=== PATIENT | female | born 1960 | race African-American/Black ===

== ENCOUNTER 2016-08-22 17:26 | Inpatient (IN) | payer MEDICAID ==
[~2016-08-22] VITALS: Ht 182.9 cm; Wt 113.0 kg
[~2016-08-22 17:26] MED LIST: ASP81EC PO; ATEN50TA; DIGO0.1262; DOCU100C8; FURO40TA4 PO; LEVO125T6 PO; NOR10T PO; OMEPRAZOLE DR 20 MG CAPSULE PO; POTA8TAB2 PO; RANI-229 PO; SIMV-8 PO; SOTA80TA; TRAM50TA2 PO; WARF7.5T PO
[2016-08-22 19:13] LABS: Albumin 3.1 g/dL (3.4-5.0); Anion Gap 8 (5-15); Aspartate Aminotransferase 72 U/L (15-37); Blood Urea Nitrogen 12 mg/dL (7-18); Calcium 8.3 mg/dL (8.5-10.1); Carbon Dioxide 25 mmol/L (21-32); Chloride 105 mmol/L (98-107); GFR African American 102 mL/min; GFR Non-African American 84 mL/min; Glucose 100 mg/dL (74-106); Sodium 138 mmol/L (136-145)
[2016-08-22 19:19] LABS: Alkaline Phosphatase 172 U/L (45-117); Bilirubin, Total 0.6 mg/dL (0.2-1.0); Total Protein 8.2 g/dL (6.4-8.2)
[2016-08-22] MEDS ORDERED: ONDANSETRON HCL 4 MG/2 ML VIAL IV ONE (20:00)
[2016-08-22] MEDS ORDERED: NALBUPHINE HCL 10 MG/1ml INJECTION IV ONE (20:00)
[2016-08-22 21:00] LABS: INR 1.01 (0.9-1.15); Partial Thromboplastin Time 28.5 sec (22.64-33.71); Prothrombin Time 10.9 sec (9.37-12.3)
[2016-08-22 21:01] LABS: DEFINITIVE VIEW TRANSMISSION; Hematocrit 41.7 % (36.0-46.0); Hemoglobin 13.8 g/dL (12.2-16.2); Mean Corpuscular Hemoglobin 30.1 pg (28.0-32.0); Mean Corpuscular Hgb Conc. 32.9 g/dL (32.0-36.0); Mean Corpuscular Volume 91.4 fL (80.0-100.0); Mean Platelet Volume 10.8 fL (7.4-10.4); Platelet Count (auto) 120 10^3/uL (140-450); Red Cell Distribution Width 12.3 % (11.6-16.0); SUSPECT VIEW TRANSMISSION; White Blood Cell 4.3 10^3/uL (4.4-10.8)
[2016-08-22 21:04] LABS: B-Type Natriuretic Peptide 71.07 pg/mL (0-100)
[2016-08-22 21:15] LABS: Metamyelocytes % 0; Myelocytes % 0; Promyelocytes % 0; Reactive Lymphocytes 0
[2016-08-22 21:17] LABS: Temperature: 22.9 C (20.0-25.0)
[2016-08-22 22:18] LABS: Giant Platelets Few; Large Platelets FEW; Platelet Estimate Decrea
[2016-08-22 22:32] LABS: Urine Bilirubin Negative (Negative); Urine Blood Negative /uL (Negative); Urine Color Yellow (Yellow); Urine Glucose Normal (Normal); Urine Ketone Negative (Negative); Urine Nitrite Negative (Negative); Urine RBC <1 /hpf (0 - 4); Urine Squamous Epithelial Cell FEW /hpf (<5); Urine Urobilinogen Normal (Negative); Urine pH 5.5 (5.0-8.0)
[2016-08-23] MEDS ORDERED: ACETAMINOPHEN 325 MG TAB PO PRN (05:30)
[2016-08-23] MEDS ORDERED: HYDROcodone-ACET 5/325MG TAB PO PRN (05:30)
[2016-08-23] MEDS ORDERED: DEXTROSE (50%) 50ML SYRG IV PRN (05:30)
[2016-08-23] MEDS ORDERED: DOCUSATE SOD 100 MG CAP PO PRN (05:30)
[2016-08-23] MEDS ORDERED: ONDANSETRON HCL 4 MG/2 ML VIAL IV PRN (05:30)
[2016-08-23] MEDS: InsuLIN REG 1unit/0.01ml Soln (100units/ml) SC SCH ×3 (06:00→18:00)
[2016-08-23] MEDS: ACCU-CHEK COMFORT CURVE STRIP VI SCH ×3 (06:09→18:28)
[2016-08-23] MEDS: LEVOTHYROXINE SODIUM 50 MCG TAB PO SCH (06:53)
[2016-08-23 08:00] VITALS: BP 120/72
[2016-08-23 08:18] VITALS: BP 119/76
[2016-08-23] MEDS: NITROGLYCERIN 0.4 MG SL TAB SL PRN ×2 (09:25→09:35)
[2016-08-23] MEDS: MORPHINE SULF INJ 2 MG/ML SYRINGE 1ML IV PRN ×3 (10:00→20:11)
[2016-08-23] MEDS ORDERED: ATENOLOL 50 MG TAB PO SCH (10:00)
[2016-08-23] MEDS ORDERED: RANITIDINE 300 MG PO SCH (10:00)
[2016-08-23] MEDS: ASPirin 81 mg TAB PO SCH (10:02)
[2016-08-23] MEDS: FAMOTIDINE 20 MG TAB PO SCH ×2 (10:02→21:47)
[2016-08-23] MEDS: SOTALOL HCL 80 MG TAB PO SCH ×2 (10:03→21:46)
[2016-08-23] MEDS: POTASSIUM CHLORIDE 8 MEQ TAB PO SCH (10:04)
[2016-08-23] MEDS: FUROSEMIDE 40 MG TAB PO SCH (10:05)
[2016-08-23] MEDS: DIGOXIN 0.125 MG TAB PO SCH (10:05)
[2016-08-23] MEDS: ENOXAPARIN SOD 40 MG/0.4 ML SYRINGE SC SCH (10:09)
[2016-08-23 12:42] VITALS: BP 120/72
[2016-08-23 13:14] VITALS: BP 135/80
[2016-08-23 16:45] VITALS: BP 128/79
[2016-08-23 21:38] VITALS: BP 121/70
[2016-08-23] MEDS: ATENOLOL 25 MG TAB PO SCH (21:47)
[2016-08-23] MEDS ORDERED: PATIENTS OWN MEDICATION (simvastatin 20 MG) PO SCH ×2 (22:00)
[2016-08-23] MEDS ORDERED: ATORVASTATIN 20 MG TAB PO SCH (22:00)
[2016-08-24] MEDS: ACCU-CHEK COMFORT CURVE STRIP VI SCH ×3 (00:26→12:00)
[2016-08-24 05:00] VITALS: BP 143/77
[2016-08-24] MEDS: InsuLIN REG 1unit/0.01ml Soln (100units/ml) SC SCH ×3 (06:00→12:00)
[2016-08-24] MEDS: LEVOTHYROXINE SODIUM 50 MCG TAB PO SCH (06:33)
[2016-08-24 07:11] LABS: Albumin 2.8 g/dL (3.4-5.0); Bilirubin, Total 0.7 mg/dL (0.2-1.0); Calcium 8.6 mg/dL (8.5-10.1); Potassium 4.5 mmol/L (3.5-5.1); Total Protein 7.5 g/dL (6.4-8.2)
[2016-08-24 08:00] VITALS: BP 131/70
[2016-08-24 09:08] LABS: DEFINITIVE VIEW TRANSMISSION; Hematocrit 42.4 % (36.0-46.0); Hemoglobin 14.1 g/dL (12.2-16.2); Mean Corpuscular Hemoglobin 30.2 pg (28.0-32.0); Mean Corpuscular Hgb Conc. 33.2 g/dL (32.0-36.0); Mean Corpuscular Volume 91.1 fL (80.0-100.0); Mean Platelet Volume 10.9 fL (7.4-10.4); Platelet Count (auto) 105 10^3/uL (140-450); Red Cell Distribution Width 12.1 % (11.6-16.0); White Blood Cell 3.4 10^3/uL (4.4-10.8)
[2016-08-24 09:10] LABS: Metamyelocytes % 0; Myelocytes % 0; Promyelocytes % 0; Reactive Lymphocytes 0
[2016-08-24] MEDS: POTASSIUM CHLORIDE 8 MEQ TAB PO SCH (10:02)
[2016-08-24] MEDS: ASPirin 81 mg TAB PO SCH (10:04)
[2016-08-24] MEDS: DIGOXIN 0.125 MG TAB PO SCH (10:04)
[2016-08-24] MEDS: ATENOLOL 25 MG TAB PO SCH (10:04)
[2016-08-24] MEDS: FAMOTIDINE 20 MG TAB PO SCH (10:04)
[2016-08-24] MEDS: FUROSEMIDE 40 MG TAB PO SCH (10:05)
[2016-08-24] MEDS: SOTALOL HCL 80 MG TAB PO SCH (10:05)
[2016-08-24] MEDS: ENOXAPARIN SOD 40 MG/0.4 ML SYRINGE SC SCH (10:06)
[2016-08-24 11:52] VITALS: BP 131/70
[2016-08-24 15:28] LABS: Platelet Estimate Decreased
[2016-08-24 15:29] LABS: Ovalocytes FEW; Stomatocytes Few
== END 2016-08-24 13:30 | disposition home or self-care (01) | DRG 201 ==
LOC: EDBD 17:26 → ER 17:26 → TELE 17:27 → TELE-E-ADS 08-23 07:56 → TELE-EAST 08-23 09:05
PROVIDERS: ADMIT Nurse Practitioner; ATTEND Internal Medicine
DX: I48.0 Paroxysmal atrial fibrillation (principal); E10.22 Type 1 diabetes mellitus with diabetic chronic kidney disease; E44.0 Moderate protein-calorie malnutrition; D69.6 Thrombocytopenia, unspecified; I13.0 Hypertensive heart and chronic kidney disease with heart failure and stage 1 through stage 4 chronic kidney disease, or unspecified chronic kidney disease; I50.9 Heart failure, unspecified; L03.115 Cellulitis of right lower limb; F03.90 Unspecified dementia, unspecified severity, without behavioral disturbance, psychotic disturbance, mood disturbance, and anxiety; E78.5 Hyperlipidemia, unspecified; M19.011 Primary osteoarthritis, right shoulder; N18.9 Chronic kidney disease, unspecified; F12.90 Cannabis use, unspecified, uncomplicated; B18.2 Chronic viral hepatitis C; I48.2 Chronic atrial fibrillation; R04.0 Epistaxis; F20.9 Schizophrenia, unspecified; E89.0 Postprocedural hypothyroidism; Z85.9 Personal history of malignant neoplasm, unspecified; Z80.0 Family history of malignant neoplasm of digestive organs; Z86.718 Personal history of other venous thrombosis and embolism; Z82.49 Family history of ischemic heart disease and other diseases of the circulatory system; Z82.3 Family history of stroke; Z79.4 Long term (current) use of insulin; Z68.33 Body mass index [BMI] 33.0-33.9, adult; Z83.3 Family history of diabetes mellitus; Z95.0 Presence of cardiac pacemaker; Z88.5 Allergy status to narcotic agent; Z88.0 Allergy status to penicillin; Z88.8 Allergy status to other drugs, medicaments and biological substances; Z90.710 Acquired absence of both cervix and uterus; Z98.51 Tubal ligation status; Z83.2 Family history of diseases of the blood and blood-forming organs and certain disorders involving the immune mechanism
CPT/HCPCS: 36415; 71010; 80053; 80162; 81001; 82962; 83880; 84443; 84484; 85007; 85027; 85379; 85610; 85730; 93005; 93306; 93971; 96374; 96375; J2405

== ENCOUNTER 2017-06-23 12:56 | Emergency (ER) | payer MEDICAID ==
[~2017-06-23] VITALS: Ht 177.8 cm; Wt 130.6 kg
[~2017-06-23 12:56] MED LIST changes: -LEVO125T6 PO; +LEVO125T7 PO
[2017-06-23] MEDS ORDERED: PANTOPRAZOLE 40 MG/10 ML VIAL IV STA (13:39)
[2017-06-23] MEDS ORDERED: PROCHLORPERAZINE EDISYLATE 5 MG/ML 2ML VIAL IV ONE (13:45)
[2017-06-23 14:50] LABS: Basophils # (auto) 0 uL; Basophils % (auto) 0.4 % (0.0-2.0); Eosinophils # (auto) 0 uL; Eosinophils % (auto) 0.2 % (0.0-7.0); Lymphocytes # (auto) 1.1 uL; Lymphocytes % (auto) 31.7 % (10.0-50.0); Mean Corpuscular Hemoglobin 31.5 pg (28.0-32.0); Mean Corpuscular Hgb Conc. 34.1 g/dL (32.0-36.0); Mean Corpuscular Volume 92.4 fL (80.0-100.0); Monocytes # (auto) 0.6 uL; Monocytes % (auto) 17.9 % (0.0-12.0); Neutrophils # (auto) 1.7 uL; Neutrophils % (auto) 49.8 % (37.0-80.0); Nucleated Red Blood Cells % 0.4 %; Platelet Count (auto) 88 10^3/uL (140-450); Red Blood Cells 4.44 10^6/uL (4.0-5.20); Red Cell Distribution Width 13.1 % (11.8-14.3); White Blood Cell 3.4 10^3/uL (4.4-10.8)
[2017-06-23 15:10] LABS: BUN/Creatinine Ratio 12.5; Calcium 8.5 mg/dL (8.5-10.1); Magnesium 1.7 mg/dL (1.6-2.6); Potassium 3.6 mmol/L (3.5-5.1)
[2017-06-23 16:20] VITALS: BP 148/82
== END 2017-06-23 15:15 | disposition home or self-care (01) ==
LOC: ER 12:56
DX: F12.188 Cannabis abuse with other cannabis-induced disorder (principal); R11.10 Vomiting, unspecified; I48.91 Unspecified atrial fibrillation; I13.0 Hypertensive heart and chronic kidney disease with heart failure and stage 1 through stage 4 chronic kidney disease, or unspecified chronic kidney disease; E11.22 Type 2 diabetes mellitus with diabetic chronic kidney disease; N18.9 Chronic kidney disease, unspecified; I50.9 Heart failure, unspecified; I25.2 Old myocardial infarction; F12.90 Cannabis use, unspecified, uncomplicated; Z95.0 Presence of cardiac pacemaker; Z90.49 Acquired absence of other specified parts of digestive tract; Z86.73 Personal history of transient ischemic attack (TIA), and cerebral infarction without residual deficits; Z88.0 Allergy status to penicillin; Z88.5 Allergy status to narcotic agent; Z88.8 Allergy status to other drugs, medicaments and biological substances; Z79.82 Long term (current) use of aspirin; Z79.01 Long term (current) use of anticoagulants; Z79.899 Other long term (current) drug therapy
CPT/HCPCS: 36415; 76705; 80053; 82150; 83690; 83735; 85025; 94761; 96374; 96375; 99285; C9113; J0780

== ENCOUNTER 2020-06-19 20:17 | Emergency (ER) | payer MEDICAID ==
[~2020-06-19] VITALS: Ht 180.3 cm; Wt 113.4 kg
[~2020-06-19 20:17] MED LIST changes: -ASP81EC PO; +ASPI-394 PO; +DOCU100C10; -DOCU100C8; -RANI-229 PO; +RANI300T PO; -WARF7.5T PO; +WARF7.5T2 PO
[2020-06-19 21:36] LABS: Basophils # (auto) 0 10 ^3/uL (0-0.2); Basophils % (auto) 0.8 % (0.0-2.0); Eosinophils # (auto) 0.1 10 ^3/uL (0-0.8); Eosinophils % (auto) 1.6 % (0.0-7.0); Hematocrit 40.5 % (36.0-46.0); Hemoglobin 13.9 g/dL (12.2-16.2); Lymphocytes # (auto) 2.1 10 ^3/uL (0.4-5.4); Lymphocytes % (auto) 48.5 % (10.0-50.0); Mean Corpuscular Hemoglobin 33.4 pg (28.0-32.0); Mean Corpuscular Hgb Conc. 34.2 g/dL (32.0-36.0); Mean Corpuscular Volume 97.6 fL (80.0-100.0); Monocytes # (auto) 0.4 10 ^3/uL (0-1.3); Monocytes % (auto) 10.5 % (0.0-12.0); Neutrophils # (auto) 1.7 10 ^3/uL (1.6-8.6); Neutrophils % (auto) 38.6 % (37.0-80.0); Nucleated Red Blood Cells % 0.1 %; Platelet Count (auto) 76 10^3/uL (140-450); Red Blood Cells 4.15 10^6/uL (4.0-5.20); White Blood Cell 4.3 10^3/uL (4.4-10.8)
[2020-06-19 21:50] LABS: Albumin 2.8 g/dL (3.4-5.0); Anion Gap 2 (5-15); Blood Urea Nitrogen 11 mg/dL (7-18); Calcium 8.3 mg/dL (8.5-10.1); Carbon Dioxide 30 mmol/L (21-32); Chloride 106 mmol/L (98-107); Glucose 112 mg/dL (74-106); Potassium 3.7 mmol/L (3.5-5.1); Sodium 138 mmol/L (136-145)
[2020-06-19 21:55] LABS: Alanine Aminotransferase 42 U/L (13-56); Alkaline Phosphatase 152 U/L (45-117); Aspartate Aminotransferase 53 U/L (15-37); BUN/Creatinine Ratio 11.5; Bilirubin, Total 0.7 mg/dL (0.2-1.0); GFR African American 76 mL/min; GFR Non-African American 63 mL/min; Total Protein 8.4 g/dL (6.4-8.2)
[2020-06-20 01:03] LABS: Urine WBC None Seen /hpf (0 - 5)
[2020-06-20 01:29] LABS: Urine Bacteria FEW /hpf (None Seen); Urine Blood Negative /uL (Negative); Urine Hyaline Cast FEW /lpf (0 - 2); Urine Mucus FEW (None Seen)
[2020-06-20 09:59] VITALS: BP 117/67
== END 2020-06-20 10:54 | disposition home or self-care (01) ==
LOC: EDBD 20:17 → ER 20:17
DX: R07.89 Other chest pain (principal); R06.02 Shortness of breath; E11.22 Type 2 diabetes mellitus with diabetic chronic kidney disease; N18.9 Chronic kidney disease, unspecified; E78.5 Hyperlipidemia, unspecified; Z98.51 Tubal ligation status; Z90.710 Acquired absence of both cervix and uterus; Z86.73 Personal history of transient ischemic attack (TIA), and cerebral infarction without residual deficits
CPT/HCPCS: 36415; 71045; 80053; 81001; 83880; 84484; 85025; 93005

== ENCOUNTER 2020-06-22 08:29 | Inpatient (IN) | payer MEDICAID ==
[~2020-06-22] VITALS: Ht 175.3 cm; Wt 105.0 kg
[2020-06-22 08:59] LABS: Basophils # (auto) 0.1 10 ^3/uL (0-0.2); Basophils % (auto) 1.6 % (0.0-2.0); Eosinophils # (auto) 0.1 10 ^3/uL (0-0.8); Eosinophils % (auto) 1.7 % (0.0-7.0); Hematocrit 40.8 % (36.0-46.0); Lymphocytes # (auto) 2.2 10 ^3/uL (0.4-5.4); Lymphocytes % (auto) 50.2 % (10.0-50.0); Mean Corpuscular Hemoglobin 33.1 pg (28.0-32.0); Mean Corpuscular Hgb Conc. 34.4 g/dL (32.0-36.0); Mean Corpuscular Volume 96.2 fL (80.0-100.0); Monocytes # (auto) 0.6 10 ^3/uL (0-1.3); Monocytes % (auto) 12.6 % (0.0-12.0); Neutrophils # (auto) 1.5 10 ^3/uL (1.6-8.6); Neutrophils % (auto) 33.9 % (37.0-80.0); Nucleated Red Blood Cells % 0.1 %; Platelet Count (auto) 71 10^3/uL (140-450); Red Blood Cells 4.24 10^6/uL (4.0-5.20); Red Cell Distribution Width 13.1 % (11.8-14.3); White Blood Cell 4.4 10^3/uL (4.4-10.8)
[2020-06-22] MEDS ORDERED: ASPirin 81 mg TAB PO ONE (09:00)
[2020-06-22] MEDS: AMIODARONE 450mg/250ml AE 250 ML IV SCH ×2 (09:14→09:41)
[2020-06-22 09:24] LABS: Albumin 2.8 g/dL (3.4-5.0); Anion Gap 5 (5-15); Blood Urea Nitrogen 14 mg/dL (7-18); Calcium 8.2 mg/dL (8.5-10.1); Carbon Dioxide 28 mmol/L (21-32); Chloride 106 mmol/L (98-107); Glucose 88 mg/dL (74-106); Potassium 3.4 mmol/L (3.5-5.1); Sodium 139 mmol/L (136-145)
[2020-06-22 09:26] LABS: INR 1.1 (0.9-1.15); Partial Thromboplastin Time 29.4 sec (23.0-31.2)
[2020-06-22 09:29] LABS: Alanine Aminotransferase 43 U/L (13-56); Alkaline Phosphatase 124 U/L (45-117); Aspartate Aminotransferase 53 U/L (15-37); BUN/Creatinine Ratio 14.6; Bilirubin, Total 0.9 mg/dL (0.2-1.0); GFR African American 76 mL/min; GFR Non-African American 63 mL/min; Total Protein 8.3 g/dL (6.4-8.2)
[2020-06-22] MEDS ORDERED: MORPHINE SULFATE 4 MG/ML SYR/VIAL ONE (09:29)
[2020-06-22] MEDS ORDERED: ONDANSETRON HCL 4 MG/2 ML VIAL IV ONE (09:30)
[2020-06-22] MEDS ORDERED: MORPHINE SULFATE 4 MG/ML SYR/VIAL IV ONE (09:30)
[2020-06-22] MEDS ORDERED: ONDANSETRON HCL 4 MG/2 ML VIAL ONE (09:30)
[2020-06-22] MEDS ORDERED: NITROGLYCERIN 0.4 MG SL TAB SL PRN (12:00)
[2020-06-22] MEDS ORDERED: ONDANSETRON HCL 4 MG/2 ML VIAL IV PRN (12:00)
[2020-06-22] MEDS ORDERED: DEXTROSE (50%) 50ML SYRG IV PRN (12:00)
[2020-06-22] MEDS ORDERED: DOCUSATE SOD 100 MG CAP PO PRN (12:00)
[2020-06-22] MEDS ORDERED: IOHEXOL 300 MG/ML 100ML BOTTLE IJ ONE (12:59)
[2020-06-22] MEDS: MORPHINE SULF INJ 2 MG/ML SYRINGE 1ML IV PRN (13:17)
[2020-06-22] MEDS: PROMETHAZINE HCL 25 MG/ML 1ML IV PRN (16:26)
[2020-06-22] MEDS: InsuLIN REG 1unit/0.01ml Soln (100units/ml) SC SCH ×2 (17:00→22:00)
[2020-06-22] MEDS: ACCU-CHEK COMFORT CURVE STRIP VI SCH ×2 (17:04→22:11)
[2020-06-22 17:29] LABS: Urine Bacteria NONE SEEN /hpf (None Seen); Urine Blood Negative /uL (Negative); Urine Mucus FEW (None Seen); Urine WBC <1 /hpf (0 - 5)
[2020-06-22 17:38] LABS: Urine Specific Gravity > 1.050 (1.001-1.035)
[2020-06-22] MEDS: FAMOTIDINE 20 MG TAB PO SCH (22:11)
[2020-06-23] VITALS (8 sets, daily range): BP systolic 106–136; BP diastolic 60–84
[2020-06-23] MEDS ORDERED: METO-159 PO (02:08)
[2020-06-23] MEDS ORDERED: CHOL100079 OR (02:08)
[2020-06-23] MEDS ORDERED: LOPE2CAP PO (02:08)
[2020-06-23] MEDS ORDERED: MORP15TA PO (02:08)
[2020-06-23] MEDS ORDERED: ALLO100T PO (02:08)
[2020-06-23] MEDS ORDERED: APIX2.5T PO (02:08)
[2020-06-23] MEDS ORDERED: DILT-14 PO (02:08)
[2020-06-23] MEDS ORDERED: PERCOT PO (02:08)
[2020-06-23] MEDS: InsuLIN REG 1unit/0.01ml Soln (100units/ml) SC SCH ×4 (06:32→22:00)
[2020-06-23] MEDS: ACCU-CHEK COMFORT CURVE STRIP VI SCH ×4 (06:32→22:23)
[2020-06-23 07:11] LABS: Hemoglobin 12.7 g/dL (12.2-16.2); White Blood Cell 2.8 10^3/uL (4.4-10.8)
[2020-06-23 07:14] LABS: Hematocrit 36.7 % (36.0-46.0); Mean Corpuscular Hemoglobin 33.2 pg (28.0-32.0); Mean Corpuscular Hgb Conc. 34.7 g/dL (32.0-36.0); Mean Corpuscular Volume 95.8 fL (80.0-100.0); Platelet Count (auto) 55 10^3/uL (140-450); Red Blood Cells 3.83 10^6/uL (4.0-5.20); Red Cell Distribution Width 12.6 % (11.8-14.3)
[2020-06-23 07:19] LABS: Band Neutrophils % (manual) 0; Blast Cells 0; Metamyelocytes % 0; Myelocytes % 0; Promyelocytes % 0; Reactive Lymphocytes 0
[2020-06-23 07:51] LABS: Potassium 3.8 mmol/L (3.5-5.1)
[2020-06-23 08:00] LABS: Albumin 2.4 g/dL (3.4-5.0); BUN/Creatinine Ratio 14.1; Bilirubin, Total 0.9 mg/dL (0.2-1.0); CRP High Sensitivity 0.24 mg/dL (< 0.3); Phosphorus 3.3 mg/dL (2.5-4.90)
[2020-06-23 08:14] LABS: Cholesterol 78 mg/dL (< 200); HDL Cholesterol 35 mg/dL (40-59); LDL Cholesterol 43 mg/dL (< 100); Triglycerides 46 mg/dL (< 150)
[2020-06-23] MEDS: MORPHINE SULF INJ 2 MG/ML SYRINGE 1ML IV PRN ×2 (08:23→17:34)
[2020-06-23 08:27] LABS: Basophils % (manual) 1 (0.0-2.0); Eosinophils % (manual) 1 (0-7); Lymphocytes % (manual) 80 (10.0-50.0); Monocytes % (manual) 10 (0-12)
[2020-06-23] MEDS: DIGOXIN 0.125 MG TAB PO SCH (10:30)
[2020-06-23] MEDS: ALLOPURINOL 100 MG TAB PO SCH ×2 (10:30→22:22)
[2020-06-23] MEDS: APIXABAN 2.5 MG TAB PO SCH ×2 (10:30→22:00)
[2020-06-23] MEDS: FAMOTIDINE 20 MG TAB PO SCH (10:30)
[2020-06-23] MEDS: POTASSIUM CHLORIDE 8 MEQ TAB PO SCH (10:30)
[2020-06-23] MEDS: SOTALOL HCL 80 MG TAB PO SCH ×2 (10:31→22:00)
[2020-06-23] MEDS: FUROSEMIDE 40 MG TAB PO SCH (10:31)
[2020-06-23] MEDS: dilTIAZem 120MG ER CAP PO SCH (10:31)
[2020-06-23] MEDS: METOPROLOL TARTRATE 50 MG TAB PO SCH ×2 (10:32→22:00)
[2020-06-23] MEDS: SUCRALFATE 1 GM/10 ML ORAL SUSP PO SCH ×3 (12:05→22:21)
[2020-06-23] MEDS: PANTOPRAZOLE 40 MG TAB PO SCH ×2 (12:05→22:22)
[2020-06-24] MEDS: MORPHINE SULF INJ 2 MG/ML SYRINGE 1ML IV PRN (03:01)
[2020-06-24] MEDS: PROMETHAZINE HCL 25 MG/ML 1ML IV PRN (03:02)
[2020-06-24 05:23] VITALS: BP 108/66
[2020-06-24] MEDS: SUCRALFATE 1 GM/10 ML ORAL SUSP PO SCH ×2 (05:34→11:57)
[2020-06-24] MEDS: ACCU-CHEK COMFORT CURVE STRIP VI SCH ×2 (06:18→11:57)
[2020-06-24] MEDS: InsuLIN REG 1unit/0.01ml Soln (100units/ml) SC SCH ×2 (06:18→11:30)
[2020-06-24 08:00] VITALS: BP 107/78
[2020-06-24 08:10] VITALS: BP 142/70
[2020-06-24] MEDS ORDERED: diphenhdrAMINE HCL 50 MG/1 ML VL ONE (08:27)
[2020-06-24] MEDS ORDERED: SODIUM CHLORIDE LOCK 10 ML ONE (08:27)
[2020-06-24] MEDS ORDERED: LIDOCAINE VISCOUS 2% 15ML UD ONE (08:27)
[2020-06-24] MEDS ORDERED: FLUMAZENIL 0.1 MG/ML INJ 10ML MDV IV ONE (08:32)
[2020-06-24] MEDS ORDERED: NALOXONE HCL 0.4 MG/ML VIAL ONE (08:32)
[2020-06-24] MEDS: MIDAZOLAM HCL 5 MG/ML-1ML VIAL ONE ×2 (09:11→09:14)
[2020-06-24] MEDS: fentaNYL CITRATE 100 MCG/2 ML VL ONE ×2 (09:11→09:14)
[2020-06-24] MEDS: dilTIAZem 120MG ER CAP PO SCH (10:11)
[2020-06-24] MEDS: APIXABAN 2.5 MG TAB PO SCH (10:11)
[2020-06-24] MEDS: SOTALOL HCL 80 MG TAB PO SCH (10:11)
[2020-06-24] MEDS: POTASSIUM CHLORIDE 8 MEQ TAB PO SCH (10:12)
[2020-06-24] MEDS: DIGOXIN 0.125 MG TAB PO SCH (10:12)
[2020-06-24] MEDS: FUROSEMIDE 40 MG TAB PO SCH (10:13)
[2020-06-24] MEDS: METOPROLOL TARTRATE 50 MG TAB PO SCH (10:13)
[2020-06-24] MEDS: ALLOPURINOL 100 MG TAB PO SCH (10:13)
[2020-06-24] MEDS: PANTOPRAZOLE 40 MG TAB PO SCH (10:13)
[2020-06-24 10:32] LABS: Hematocrit 38.9 % (36.0-46.0); Hemoglobin 13.2 g/dL (12.2-16.2); Mean Corpuscular Hemoglobin 32.5 pg (28.0-32.0); Mean Corpuscular Hgb Conc. 33.8 g/dL (32.0-36.0); Platelet Count (auto) 72 10^3/uL (140-450); Red Blood Cells 4.05 10^6/uL (4.0-5.20); Red Cell Distribution Width 12.7 % (11.8-14.3)
[2020-06-24 10:35] LABS: Band Neutrophils % (manual) 0; Basophils % (manual) 0 (0.0-2.0); Eosinophils % (manual) 0 (0-7); Metamyelocytes % 0
[2020-06-24 10:36] LABS: Blast Cells 0; Myelocytes % 0; Promyelocytes % 0
[2020-06-24 10:43] LABS: Albumin 2.5 g/dL (3.4-5.0); Potassium 4.1 mmol/L (3.5-5.1)
[2020-06-24 10:46] LABS: BUN/Creatinine Ratio 9.7; Bilirubin, Total 0.8 mg/dL (0.2-1.0); Total Protein 7.6 g/dL (6.4-8.2)
[2020-06-24 12:35] LABS: Lymphocytes % (manual) 56 (10.0-50.0); Monocytes % (manual) 9 (0-12); Reactive Lymphocytes 8
[2020-06-24 13:56] VITALS: BP 108/78
== END 2020-06-24 15:30 | disposition home or self-care (01) | DRG 241 ==
LOC: ER 08:29 → EDBD 08:29 → TELE 08:30 → TELE-EAST 23:14
PROVIDERS: ADMIT Nurse Practitioner; ATTEND Nurse Practitioner
PROC: 0DJ08ZZ Inspection of Upper Intestinal Tract, Via Natural or Artificial Opening Endoscopic (ICD-10-PCS; principal; 2020-06-24 09:15)
DX: K29.70 Gastritis, unspecified, without bleeding (principal); I13.0 Hypertensive heart and chronic kidney disease with heart failure and stage 1 through stage 4 chronic kidney disease, or unspecified chronic kidney disease; E11.22 Type 2 diabetes mellitus with diabetic chronic kidney disease; E11.40 Type 2 diabetes mellitus with diabetic neuropathy, unspecified; D69.59 Other secondary thrombocytopenia; I48.0 Paroxysmal atrial fibrillation; F20.9 Schizophrenia, unspecified; I50.9 Heart failure, unspecified; K74.60 Unspecified cirrhosis of liver; F03.90 Unspecified dementia, unspecified severity, without behavioral disturbance, psychotic disturbance, mood disturbance, and anxiety; Z20.822 Contact with and (suspected) exposure to COVID-19; D72.819 Decreased white blood cell count, unspecified; E78.5 Hyperlipidemia, unspecified; J44.9 Chronic obstructive pulmonary disease, unspecified; B19.20 Unspecified viral hepatitis C without hepatic coma; K21.9 Gastro-esophageal reflux disease without esophagitis; E89.0 Postprocedural hypothyroidism; N18.2 Chronic kidney disease, stage 2 (mild); Z88.5 Allergy status to narcotic agent; Z88.0 Allergy status to penicillin; Z88.8 Allergy status to other drugs, medicaments and biological substances; Z95.0 Presence of cardiac pacemaker; I25.2 Old myocardial infarction; Z79.899 Other long term (current) drug therapy; Z90.710 Acquired absence of both cervix and uterus; Z98.51 Tubal ligation status; Z86.73 Personal history of transient ischemic attack (TIA), and cerebral infarction without residual deficits; Z82.3 Family history of stroke; Z80.0 Family history of malignant neoplasm of digestive organs; Z79.01 Long term (current) use of anticoagulants
CPT/HCPCS: 36415; 43235; 71045; 71260; 74177; 80053; 80061; 81001; 82962; 83036; 83735; 83880; 84100; 84443; 84484; 85007; 85025; 85027; 85379; 85610; 85730; 86141; 87081; 87426; 93005; 93306; 96365; 96375; G0378; J2250; J2405

== ENCOUNTER 2020-07-15 07:10 | Emergency (ER) | payer MEDICAID ==
[~2020-07-15] VITALS: Ht 180.3 cm; Wt 112.5 kg
[~2020-07-15 07:10] MED LIST changes: +ALLO100T PO; +APIX2.5T PO; -ASPI-394 PO; -ATEN50TA; +CHOL100079 OR; -DIGO0.1262; +LOPE2CAP PO; +METO-159 PO; -NOR10T PO; +PERCOT PO; -RANI300T PO; -TRAM50TA2 PO; -WARF7.5T2 PO
[2020-07-15] MEDS ORDERED: FAMOTIDINE 20 MG TAB PO ONE (07:45)
[2020-07-15] MEDS ORDERED: DONNATAL 5ml ORAL Elix (BELLADONNA ALK-PHENOBARB) PO ONE (07:45)
[2020-07-15] MEDS ORDERED: ALUM & MAG HYDROX-SIMETH LIQ(MAALOX) 30 ML PO ONE (07:45)
[2020-07-15] MEDS ORDERED: SODIUM CHLORIDE 0.9% 1,000 ML IVB ONE (07:45)
[2020-07-15 07:52] LABS: Hematocrit 39.2 % (36.0-46.0); Hemoglobin 13.4 g/dL (12.2-16.2); Mean Corpuscular Hgb Conc. 34.3 g/dL (32.0-36.0); Mean Corpuscular Volume 96.3 fL (80.0-100.0); Platelet Count (auto) 73 10^3/uL (140-450); Red Blood Cells 4.07 10^6/uL (4.0-5.20); Red Cell Distribution Width 12.9 % (11.8-14.3)
[2020-07-15 07:59] LABS: Band Neutrophils % (manual) 0; Basophils % (manual) 0 (0.0-2.0); Blast Cells 0; Metamyelocytes % 0; Myelocytes % 0; Promyelocytes % 0; Reactive Lymphocytes 0
[2020-07-15] MEDS ORDERED: HYDROmorphone HCL 2 MG/ML VL IV ONE (08:00)
[2020-07-15] MEDS ORDERED: SODIUM CHLORIDE 0.9% 1,000 ML IV ONE (08:00)
[2020-07-15] MEDS ORDERED: PROMETHAZINE HCL 25 MG/ML 1ML IV PRN (08:00)
[2020-07-15 08:12] LABS: Albumin 2.6 g/dL (3.4-5.0); BUN/Creatinine Ratio 7.2; Potassium 3.2 mmol/L (3.5-5.1)
[2020-07-15 08:14] LABS: Bilirubin, Total 0.7 mg/dL (0.2-1.0); Total Protein 7.8 g/dL (6.4-8.2)
[2020-07-15 08:53] LABS: Eosinophils % (manual) 3 (0-7); Lymphocytes % (manual) 59 (10.0-50.0); Monocytes % (manual) 15 (0-12)
[2020-07-15] MEDS ORDERED: POTASSIUM EFFERVESENT TAB 25 MEQ PO ONE (09:00)
[2020-07-15] MEDS: MAGNESIUM SULFATE 1GM/100ML 100 ML IV SCH ×4 (09:05→10:54)
[2020-07-15 09:23] LABS: Urine Bacteria FEW /hpf (None Seen); Urine Blood Negative /uL (Negative); Urine Hyaline Cast MOD /lpf (0 - 2); Urine Mucus FEW (None Seen); Urine Specific Gravity 1.031 (1.001-1.035); Urine WBC 4 /hpf (0 - 5)
[2020-07-15 09:51] LABS: Barbiturate Scree,Urine NEGATIVE (NEGATIVE); Benzodiazephine Screen, Urine NEGATIVE (NEGATIVE); Cannabinoid Screen, Urine POSITIVE (NEGATIVE); Cocaine Screen, Urine NEGATIVE (NEGATIVE); Opiate Scree,Urine NEGATIVE (NEGATIVE); Phencyclidine Screen, Urine NEGATIVE (NEGATIVE)
[2020-07-15 09:58] LABS: Amphetamine Screen, Urine NEGATIVE (NEGATIVE)
[2020-07-15] MEDS ORDERED: cefTRIAXone 1GM/50ML D5W 50 ML IV ONE (10:30)
[2020-07-15 12:38] VITALS: BP 117/70
== END 2020-07-15 12:45 | disposition home or self-care (01) ==
LOC: ER 07:10 → EDBD 07:10 → ER 12:45
DX: N39.0 Urinary tract infection, site not specified (principal); I48.91 Unspecified atrial fibrillation; K74.60 Unspecified cirrhosis of liver; E87.6 Hypokalemia; E83.42 Hypomagnesemia; K80.20 Calculus of gallbladder without cholecystitis without obstruction; E44.0 Moderate protein-calorie malnutrition; F12.10 Cannabis abuse, uncomplicated; M19.90 Unspecified osteoarthritis, unspecified site; J44.9 Chronic obstructive pulmonary disease, unspecified; E11.9 Type 2 diabetes mellitus without complications; K21.9 Gastro-esophageal reflux disease without esophagitis; E78.5 Hyperlipidemia, unspecified; I10 Essential (primary) hypertension; Z20.822 Contact with and (suspected) exposure to COVID-19; Z68.34 Body mass index [BMI] 34.0-34.9, adult; Z95.0 Presence of cardiac pacemaker; Z90.89 Acquired absence of other organs; Z90.710 Acquired absence of both cervix and uterus; Z98.51 Tubal ligation status; Z79.899 Other long term (current) drug therapy; Z88.5 Allergy status to narcotic agent; Z88.0 Allergy status to penicillin; Z88.8 Allergy status to other drugs, medicaments and biological substances
CPT/HCPCS: 36415; 71046; 74176; 80053; 80162; 80307; 81001; 83690; 83735; 84443; 84484; 85007; 85027; 87426; 96361; 96365; 96366; 96368; 96375; 99285; J0696; J1170; J2550; J3475

== ENCOUNTER 2020-11-02 09:43 | Emergency (ER) | payer MEDICAID ==
[~2020-11-02] VITALS: Ht 180.3 cm; Wt 115.7 kg
[2020-11-02] MEDS ORDERED: DILT120T3 PO (10:03)
[2020-11-02] MEDS ORDERED: GLUC-20 XX (10:03)
[2020-11-02] MEDS ORDERED: POTA8TAB2 (10:03)
[2020-11-02] MEDS ORDERED: PANT40T (10:03)
[2020-11-02] MEDS ORDERED: DOCU1CAP31 PO (10:03)
[2020-11-02] MEDS ORDERED: IBUP600T28 PO (10:03)
[2020-11-02] MEDS ORDERED: ONDA-188 PO (10:03)
[2020-11-02] MEDS ORDERED: MORP30TA PO (10:03)
[2020-11-02] MEDS ORDERED: DRON400T PO (10:03)
[2020-11-02] MEDS ORDERED: LANC30MI (10:03)
[2020-11-02] MEDS ORDERED: CARV12.544 PO (10:03)
[2020-11-02] MEDS ORDERED: TIZA2TAB3 PO (10:03)
[2020-11-02] MEDS ORDERED: AMIO200T4 PO (10:03)
[2020-11-02] MEDS ORDERED: CLIN300C8 PO (10:03)
[2020-11-02 10:08] VITALS: BP 133/86
[2020-11-02] MEDS ORDERED: IBUPROFEN 800 MG TAB PO ONE (10:45)
[2020-11-02 11:32] LABS: Albumin 2.8 g/dL (3.4-5.0); Anion Gap 4 (5-15); Carbon Dioxide 24 mmol/L (21-32); Chloride 110 mmol/L (98-107); Glucose 76 mg/dL (74-106); Potassium 4.4 mmol/L (3.5-5.1); Sodium 138 mmol/L (136-145)
[2020-11-02 11:36] LABS: Hemoglobin 11.6 g/dL (12.2-16.2); White Blood Cell 2.9 10^3/uL (4.4-10.8)
[2020-11-02 11:38] LABS: Hematocrit 34.5 % (36.0-46.0); Mean Corpuscular Hemoglobin 30.6 pg (28.0-32.0); Mean Corpuscular Hgb Conc. 33.5 g/dL (32.0-36.0); Mean Corpuscular Volume 91.2 fL (80.0-100.0); Platelet Count (auto) 60 10^3/uL (140-450); Red Blood Cells 3.78 10^6/uL (4.0-5.20)
[2020-11-02 11:40] LABS: Alanine Aminotransferase 34 U/L (13-56); Alkaline Phosphatase 149 U/L (45-117); Aspartate Aminotransferase 42 U/L (15-37); BUN/Creatinine Ratio 12.8; Bilirubin, Total 0.7 mg/dL (0.2-1.0); Blood Urea Nitrogen 14 mg/dL (7-18); GFR African American 65 mL/min; GFR Non-African American 54 mL/min; Total Protein 7.6 g/dL (6.4-8.2)
[2020-11-02] MEDS ORDERED: ASPirin 81 mg TAB PO ONE (11:45)
[2020-11-02 11:46] LABS: Basophils % (manual) 0 (0.0-2.0); Blast Cells 0; Eosinophils % (manual) 0 (0-7); Metamyelocytes % 0; Myelocytes % 0; Promyelocytes % 0; Reactive Lymphocytes 0
[2020-11-02 13:36] LABS: Band Neutrophils % (manual) 3; Lymphocytes % (manual) 47 (10.0-50.0); Monocytes % (manual) 22 (0-12)
== END 2020-11-02 12:38 | disposition home or self-care (01) ==
LOC: ER 09:43 → EDBD 09:43 → ER 12:38
DX: R07.89 Other chest pain (principal); K74.60 Unspecified cirrhosis of liver; J44.9 Chronic obstructive pulmonary disease, unspecified; E11.9 Type 2 diabetes mellitus without complications; K21.9 Gastro-esophageal reflux disease without esophagitis; E78.5 Hyperlipidemia, unspecified; I10 Essential (primary) hypertension; Z90.710 Acquired absence of both cervix and uterus; Z98.51 Tubal ligation status; Z88.0 Allergy status to penicillin; Z88.5 Allergy status to narcotic agent
CPT/HCPCS: 36415; 71045; 80053; 84484; 85007; 85027; 93005

== ENCOUNTER 2023-01-28 18:39 | Inpatient (IN) | payer MEDICAID ==
[~2023-01-28] VITALS: Ht 175.3 cm; Wt 86.1 kg
[~2023-01-28 18:39] MED LIST changes: +AMIO200T13 PO; +CARV12.544 PO; +CLIN300C70 PO; +DILT120T3 PO; +DOCU-209 PO; +DOCU-265; -DOCU100C10; +DRON400T PO; +GLUC-20 XX; +IBUP1TAB5 PO; +LANC30MI; +MORP30TA PO; +ONDA-188 PO; +PANT40T; -POTA8TAB2 PO; +POTA8TAB38; +POTA8TAB38 PO; -SIMV-8 PO; +SIMV20TA20 PO; +TIZA-326 PO
[2023-01-28] MEDS ORDERED: HYDROmorphone HCL 2 MG/ML VL/or syr IM ONE (19:45)
[2023-01-28 19:55] LABS: Basophils # (auto) 0 10 ^3/uL (0-0.2); Basophils % (auto) 0.5 % (0.0-2.0); Eosinophils # (auto) 0 10 ^3/uL (0-0.8); Hematocrit 28.8 % (36.0-46.0); Hemoglobin 9.4 g/dL (12.2-16.2); Lymphocytes # (auto) 1.5 10 ^3/uL (0.4-5.4); Lymphocytes % (auto) 40.7 % (10.0-50.0); Mean Corpuscular Hemoglobin 30.8 pg (28.0-32.0); Mean Corpuscular Hgb Conc. 32.7 g/dL (32.0-36.0); Monocytes # (auto) 0.4 10 ^3/uL (0-1.3); Monocytes % (auto) 12.2 % (0.0-12.0); Neutrophils # (auto) 1.6 10 ^3/uL (1.6-8.6); Neutrophils % (auto) 45.6 % (37.0-80.0); Red Blood Cells 3.07 10^6/uL (4.0-5.20); Red Cell Distribution Width 15.8 % (11.8-14.3); White Blood Cell 3.6 10^3/uL (4.4-10.8)
[2023-01-29 02:03] LABS: Alanine Aminotransferase 13 U/L (7-40); Alkaline Phosphatase 146 U/L (46-116); Anion Gap 11 (5-15); Calcium 8.5 mg/dL (8.7-10.4); Carbon Dioxide 21 mmol/L (20-30); Chloride 107 mmol/L (98-107); Glucose 98 mg/dL (74-106); Potassium 3.2 mmol/L (3.5-5.1); Sodium 139 mmol/L (136-145)
[2023-01-29 02:04] LABS: BUN/Creatinine Ratio 6.7 (10.0-20.0); Blood Urea Nitrogen 7 mg/dL (9-23)
[2023-01-29 02:05] LABS: Albumin 2.8 g/dL (3.2-4.8); Aspartate Aminotransferase 28 U/L (13-40)
[2023-01-29 02:06] LABS: Bilirubin, Total 1.7 mg/dL (0.2-1.0); Total Protein 7.9 g/dL (5.7-8.2)
[2023-01-29] MEDS ORDERED: POTASSIUM EFFERVESENT TAB 25 MEQ PO ONE (03:00)
[2023-01-29 03:38] LABS: Magnesium 1.4 mg/dL (1.6-2.6)
[2023-01-29 03:45] VITALS: PULSE 59; RESP 20; O2SAT 97
[2023-01-29 04:30] LABS: Basophils # (auto) 0 10 ^3/uL (0-0.2); Basophils % (auto) 0.4 % (0.0-2.0); Eosinophils # (auto) 0 10 ^3/uL (0-0.8); Eosinophils % (auto) 0.9 % (0.0-7.0); Hematocrit 29.7 % (36.0-46.0); Hemoglobin 9.6 g/dL (12.2-16.2); Lymphocytes # (auto) 1.1 10 ^3/uL (0.4-5.4); Lymphocytes % (auto) 36.5 % (10.0-50.0); Mean Corpuscular Hemoglobin 31.2 pg (28.0-32.0); Mean Corpuscular Hgb Conc. 32.3 g/dL (32.0-36.0); Mean Corpuscular Volume 96.4 fL (80.0-100.0); Monocytes # (auto) 0.3 10 ^3/uL (0-1.3); Monocytes % (auto) 10.3 % (0.0-12.0); Neutrophils # (auto) 1.6 10 ^3/uL (1.6-8.6); Neutrophils % (auto) 51.9 % (37.0-80.0); Red Blood Cells 3.08 10^6/uL (4.0-5.20); Red Cell Distribution Width 16.1 % (11.8-14.3); White Blood Cell 3.1 10^3/uL (4.4-10.8)
[2023-01-29] MEDS ORDERED: DOCUSATE SOD 100 MG CAP PO PRN (04:30)
[2023-01-29] MEDS ORDERED: ACETAMINOPHEN 325 MG TAB PO PRN (04:30)
[2023-01-29] MEDS ORDERED: MAGNESIUM SULFATE 1GM/100ML 100 ML IV ONE (04:30)
[2023-01-29] MEDS ORDERED: HYDROmorphone HCL 2 MG/ML VL/or syr IV ONE (05:00)
[2023-01-29] MEDS: SODIUM CHLOR 0.9% PF (SALINE LOCK) 10ML VIAL/SYR IV SCH ×3 (06:07→22:22)
[2023-01-29 06:52] LABS: Alanine Aminotransferase 15 U/L (7-40); Albumin 2.9 g/dL (3.2-4.8); Alkaline Phosphatase 150 U/L (46-116); Anion Gap 14 (5-15); Aspartate Aminotransferase 29 U/L (13-40); BUN/Creatinine Ratio 6.4 (10.0-20.0); Blood Urea Nitrogen 7 mg/dL (9-23); Calcium 8.4 mg/dL (8.7-10.4); Carbon Dioxide 18 mmol/L (20-30); Chloride 111 mmol/L (98-107); Glucose 101 mg/dL (74-106); Potassium 3.3 mmol/L (3.5-5.1); Sodium 143 mmol/L (136-145)
[2023-01-29 06:53] LABS: Bilirubin, Total 1.7 mg/dL (0.2-1.0); Total Protein 8.2 g/dL (5.7-8.2)
[2023-01-29] MEDS ORDERED: LEVOTHYROXINE SODIUM 50 MCG TAB PO SCH (07:00)
[2023-01-29] MEDS: LEVOTHYROXINE SODIUM 50 MCG TAB PO SCH (07:01)
[2023-01-29 07:30] VITALS: PULSE 60; RESP 18; O2SAT 97
[2023-01-29] MEDS ORDERED: METO-289 PO (08:42)
[2023-01-29] MEDS ORDERED: DULO1CAP6 PO (08:42)
[2023-01-29] MEDS ORDERED: SOTA120T25 PO (08:42)
[2023-01-29] MEDS ORDERED: DIGO0.12 PO (08:42)
[2023-01-29] MEDS ORDERED: DILT-14 PO (08:42)
[2023-01-29] MEDS ORDERED: TEMAZEPAM 15 MG CAP PO PRN (08:45)
[2023-01-29] MEDS ORDERED: NITROGLYCERIN 0.4 MG SL TAB SL PRN (08:45)
[2023-01-29] MEDS: SOTALOL HCL 80 MG TAB PO SCH ×2 (10:47→22:20)
[2023-01-29] MEDS: FAMOTIDINE (10MG/ML) 2ML VL IV SCH ×2 (10:47→22:17)
[2023-01-29] MEDS: DIGOXIN 0.125 MG TAB PO SCH (10:47)
[2023-01-29] MEDS: METOPROLOL SUCCINATE XL 50 MG TAB PO SCH (10:48)
[2023-01-29] MEDS: APIXABAN 2.5 MG TAB PO SCH ×2 (10:48→22:20)
[2023-01-29] MEDS: FUROSEMIDE 40 MG TAB PO SCH (10:48)
[2023-01-29] MEDS: ALLOPURINOL 100 MG TAB PO SCH ×2 (10:48→22:21)
[2023-01-29] MEDS: POTASSIUM CHLORIDE 8 MEQ TAB PO SCH (10:53)
[2023-01-29] MEDS ORDERED: OXYCODONE W/ ACETAMINOPHEN 5/325MG TABLET PO SCH (12:00)
[2023-01-29 12:37] LABS: INR 1.28 (0.9-1.15); Prothrombin Time 13.2 sec (9.3-11.8)
[2023-01-29] MEDS: SPIRONOLACTONE 25 MG TAB PO SCH (12:38)
[2023-01-29] MEDS: MORPHINE SULF 15mg ER tab PO SCH ×2 (12:39→22:20)
[2023-01-29 15:03] LABS: Urine Bacteria FEW /hpf (None Seen); Urine Blood 2+ /uL (Negative); Urine Clarity Clear (Clear); Urine Color Colorless (Yellow); Urine Protein, UAD Negative (Negative); Urine Specific Gravity 1.006 (1.001-1.035); Urine Urobilinogen Normal (Negative); Urine WBC 1 /hpf (0 - 5)
[2023-01-29] MEDS ORDERED: CHOL20TA PO ×2 (17:09→17:18)
[2023-01-29] MEDS ORDERED: MEDR2.5T5 PO ×2 (17:15→17:17)
[2023-01-29] MEDS ORDERED: DILT-29 PO (17:20)
[2023-01-29] MEDS ORDERED: SOFO1TAB PO (17:20)
[2023-01-29] MEDS ORDERED: ACET300T51 PO (17:26)
[2023-01-29 19:35] VITALS: PULSE 61; RESP 9; O2SAT 98
[2023-01-29] MEDS: ATORVASTATIN 20 MG TAB PO SCH (22:20)
[2023-01-30] VITALS (8 sets, daily range): BP systolic 113–157; BP diastolic 68–99; PULSE 60–105; RESP 16–20; TEMP 97.6–98.4; O2SAT 93–99
[2023-01-30] MEDS: MORPHINE SULF 15mg ER tab PO SCH ×2 (01:00→21:10)
[2023-01-30] MEDS: ONDANSETRON HCL 4 MG/2 ML VIAL IV PRN ×4 (03:36→21:09)
[2023-01-30] MEDS: LEVOTHYROXINE SODIUM 50 MCG TAB PO SCH (06:43)
[2023-01-30] MEDS: SODIUM CHLOR 0.9% PF (SALINE LOCK) 10ML VIAL/SYR IV SCH ×3 (06:43→21:10)
[2023-01-30 06:44] LABS: Basophils # (auto) 0 10 ^3/uL (0-0.2); Eosinophils # (auto) 0 10 ^3/uL (0-0.8); Lymphocytes # (auto) 0.9 10 ^3/uL (0.4-5.4); Monocytes # (auto) 0.3 10 ^3/uL (0-1.3); Monocytes % (auto) 10.3 % (0.0-12.0); Neutrophils # (auto) 1.3 10 ^3/uL (1.6-8.6); White Blood Cell 2.5 10^3/uL (4.4-10.8)
[2023-01-30 06:47] LABS: Basophils % (auto) 0.4 % (0.0-2.0); Eosinophils % (auto) 1.4 % (0.0-7.0); Hematocrit 28.8 % (36.0-46.0); Hemoglobin 9.5 g/dL (12.2-16.2); Lymphocytes % (auto) 36.7 % (10.0-50.0); Mean Corpuscular Hemoglobin 31.6 pg (28.0-32.0); Mean Corpuscular Hgb Conc. 33.1 g/dL (32.0-36.0); Mean Corpuscular Volume 95.5 fL (80.0-100.0); Neutrophils % (auto) 51.2 % (37.0-80.0); Red Blood Cells 3.01 10^6/uL (4.0-5.20); Red Cell Distribution Width 15.9 % (11.8-14.3)
[2023-01-30 06:56] LABS: INR 1.27 (0.9-1.15); Prothrombin Time 13.1 sec (9.3-11.8)
[2023-01-30 07:16] LABS: Alanine Aminotransferase 26 U/L (7-40); Albumin 2.5 g/dL (3.2-4.8); Alkaline Phosphatase 98 U/L (46-116); Anion Gap 3 (5-15); Aspartate Aminotransferase 81 U/L (13-40); BUN/Creatinine Ratio 8.5 (10.0-20.0); Bilirubin, Total 2.5 mg/dL (0.2-1.0); Blood Urea Nitrogen 8 mg/dL (9-23); Calcium 7.9 mg/dL (8.7-10.4); Carbon Dioxide 29 mmol/L (20-30); Chloride 106 mmol/L (98-107); Glucose 89 mg/dL (74-106); Magnesium 1.8 mg/dL (1.6-2.6); Potassium 3.3 mmol/L (3.5-5.1); Sodium 138 mmol/L (136-145); Total Protein 7.1 g/dL (5.7-8.2)
[2023-01-30] MEDS: SPIRONOLACTONE 25 MG TAB PO SCH (08:29)
[2023-01-30] MEDS: ALLOPURINOL 100 MG TAB PO SCH ×2 (08:29→21:09)
[2023-01-30] MEDS: FUROSEMIDE 40 MG TAB PO SCH (08:30)
[2023-01-30] MEDS: APIXABAN 2.5 MG TAB PO SCH ×2 (08:30→21:09)
[2023-01-30] MEDS: DIGOXIN 0.125 MG TAB PO SCH (08:30)
[2023-01-30] MEDS: SOTALOL HCL 80 MG TAB PO SCH ×2 (08:31→21:21)
[2023-01-30] MEDS: FAMOTIDINE (10MG/ML) 2ML VL IV SCH ×2 (08:31→21:08)
[2023-01-30] MEDS: POTASSIUM CHLORIDE 8 MEQ TAB PO SCH (08:32)
[2023-01-30] MEDS: METOPROLOL SUCCINATE XL 50 MG TAB PO SCH (08:32)
[2023-01-30] MEDS ORDERED: POTASSIUM CHL 20 Meq TABLET PO ONE ×2 (09:45)
[2023-01-30] MEDS ORDERED: OMNIPAQUE 12mg/ml 500ml ORAL SOLUTION PO ONE (10:31)
[2023-01-30] MEDS ORDERED: IOHEXOL 300 MG/ML 100ML BOTTLE IJ ONE (10:32)
[2023-01-30] MEDS: levoFLOXacin 500 MG TAB PO SCH (11:12)
[2023-01-30] MEDS: FUROSEMIDE 40 MG/4 ML VIAL IV SCH (17:13)
[2023-01-30] MEDS: ATORVASTATIN 20 MG TAB PO SCH (21:09)
[2023-01-31] VITALS (7 sets, daily range): BP systolic 114–149; BP diastolic 61–94; PULSE 60–66; RESP 17–18; TEMP 97.4–98.6; O2SAT 93–99
[2023-01-31] MEDS: ONDANSETRON HCL 4 MG/2 ML VIAL IV PRN ×4 (02:22→17:33)
[2023-01-31] MEDS: SODIUM CHLOR 0.9% PF (SALINE LOCK) 10ML VIAL/SYR IV SCH ×3 (05:35→21:55)
[2023-01-31] MEDS: FUROSEMIDE 40 MG/4 ML VIAL IV SCH ×2 (05:35→17:33)
[2023-01-31] MEDS: MORPHINE SULFATE 4 MG/ML SYR/VIAL IV PRN ×3 (05:35→22:11)
[2023-01-31] MEDS: LEVOTHYROXINE SODIUM 50 MCG TAB PO SCH (05:53)
[2023-01-31 08:06] LABS: Cancer Antigen (CA) 125 35.9 U/mL (0.0-38.1)
[2023-01-31] MEDS: ALLOPURINOL 100 MG TAB PO SCH ×2 (09:00→21:55)
[2023-01-31] MEDS: levoFLOXacin 500 MG TAB PO SCH (09:00)
[2023-01-31] MEDS: APIXABAN 2.5 MG TAB PO SCH ×2 (09:02→21:55)
[2023-01-31] MEDS: METOPROLOL SUCCINATE XL 50 MG TAB PO SCH (09:02)
[2023-01-31] MEDS: POTASSIUM CHLORIDE 8 MEQ TAB PO SCH (09:03)
[2023-01-31] MEDS: FAMOTIDINE (10MG/ML) 2ML VL IV SCH ×2 (09:05→21:55)
[2023-01-31] MEDS: SOTALOL HCL 80 MG TAB PO SCH ×2 (09:05→22:05)
[2023-01-31] MEDS: MORPHINE SULF 15mg ER tab PO SCH ×3 (09:06→22:00)
[2023-01-31] MEDS: SPIRONOLACTONE 25 MG TAB PO SCH (09:36)
[2023-01-31 10:46] LABS: Basophils # (auto) 0 10 ^3/uL (0-0.2); Basophils % (auto) 0.5 % (0.0-2.0); Eosinophils # (auto) 0 10 ^3/uL (0-0.8); Eosinophils % (auto) 0.9 % (0.0-7.0); Hematocrit 29.1 % (36.0-46.0); Hemoglobin 9.5 g/dL (12.2-16.2); Mean Corpuscular Hemoglobin 30.8 pg (28.0-32.0); Mean Corpuscular Hgb Conc. 32.6 g/dL (32.0-36.0); Mean Corpuscular Volume 94.4 fL (80.0-100.0); Monocytes # (auto) 0.3 10 ^3/uL (0-1.3); Monocytes % (auto) 9.1 % (0.0-12.0); Neutrophils # (auto) 1.7 10 ^3/uL (1.6-8.6); Neutrophils % (auto) 56.5 % (37.0-80.0); Nucleated Red Blood Cells % 0.1 %; Red Blood Cells 3.08 10^6/uL (4.0-5.20); Red Cell Distribution Width 15.7 % (11.8-14.3)
[2023-01-31 11:11] LABS: Alanine Aminotransferase 26 U/L (7-40); Albumin 2.7 g/dL (3.2-4.8); Alkaline Phosphatase 79 U/L (46-116); Aspartate Aminotransferase 61 U/L (13-40); Calcium 8.1 mg/dL (8.5-10.1); Carbon Dioxide 30 mmol/L (20-30)
[2023-01-31 11:13] LABS: BUN/Creatinine Ratio 7.6 (10.0-20.0); Blood Urea Nitrogen 7 mg/dL (9-23); Glucose 100 mg/dL (74-106); Magnesium 1.5 mg/dL (1.6-2.6)
[2023-01-31 11:15] LABS: Bilirubin, Total 2.4 mg/dL (0.2-1.0); Total Protein 7.6 g/dL (5.7-8.2)
[2023-01-31 11:30] LABS: Anion Gap 3 (5-15); Chloride 104 mmol/L (98-107); Potassium 3.3 mmol/L (3.5-5.1); Sodium 137 mmol/L (136-145)
[2023-01-31] MEDS: ATORVASTATIN 20 MG TAB PO SCH (21:56)
[2023-02-01] VITALS (7 sets, daily range): BP systolic 106–145; BP diastolic 65–86; PULSE 60–62; RESP 18–19; TEMP 97.9–98.7; O2SAT 94–98
[2023-02-01] MEDS: SODIUM CHLOR 0.9% PF (SALINE LOCK) 10ML VIAL/SYR IV SCH ×3 (05:11→22:00)
[2023-02-01] MEDS: FUROSEMIDE 40 MG/4 ML VIAL IV SCH ×2 (05:11→17:43)
[2023-02-01 06:37] LABS: Basophils # (auto) 0 10 ^3/uL (0-0.2); Basophils % (auto) 0.3 % (0.0-2.0); Eosinophils # (auto) 0 10 ^3/uL (0-0.8); Eosinophils % (auto) 0.7 % (0.0-7.0); Hematocrit 29.1 % (36.0-46.0); Hemoglobin 9.6 g/dL (12.2-16.2); Lymphocytes % (auto) 33.2 % (10.0-50.0); Mean Corpuscular Volume 94.1 fL (80.0-100.0); Monocytes # (auto) 0.3 10 ^3/uL (0-1.3); Monocytes % (auto) 9.8 % (0.0-12.0); Neutrophils # (auto) 1.7 10 ^3/uL (1.6-8.6); Nucleated Red Blood Cells % 0.2 %; Red Blood Cells 3.09 10^6/uL (4.0-5.20); Red Cell Distribution Width 15.9 % (11.8-14.3); White Blood Cell 3.1 10^3/uL (4.4-10.8)
[2023-02-01 06:55] LABS: Alanine Aminotransferase 22 U/L (7-40); Alkaline Phosphatase 83 U/L (46-116); Anion Gap 3 (5-15); BUN/Creatinine Ratio 7.2 (10.0-20.0); Blood Urea Nitrogen 7 mg/dL (9-23); Calcium 8.4 mg/dL (8.7-10.4); Carbon Dioxide 30 mmol/L (20-30); Chloride 104 mmol/L (98-107); Glucose 95 mg/dL (74-106); Magnesium 1.8 mg/dL (1.6-2.6); Potassium 3.2 mmol/L (3.5-5.1); Sodium 137 mmol/L (136-145)
[2023-02-01 06:56] LABS: Aspartate Aminotransferase 51 U/L (13-40); Bilirubin, Total 1.9 mg/dL (0.2-1.0)
[2023-02-01 06:57] LABS: Total Protein 7.7 g/dL (5.7-8.2)
[2023-02-01] MEDS: SOTALOL HCL 80 MG TAB PO SCH ×2 (09:08→22:00)
[2023-02-01] MEDS: METOPROLOL SUCCINATE XL 50 MG TAB PO SCH (09:10)
[2023-02-01] MEDS: levoFLOXacin 500 MG TAB PO SCH (09:10)
[2023-02-01] MEDS: MORPHINE SULF 15mg ER tab PO SCH ×2 (09:12→22:00)
[2023-02-01] MEDS: APIXABAN 2.5 MG TAB PO SCH ×2 (09:14→22:04)
[2023-02-01] MEDS: POTASSIUM CHLORIDE 8 MEQ TAB PO SCH (09:14)
[2023-02-01] MEDS: FAMOTIDINE (10MG/ML) 2ML VL IV SCH ×2 (09:15→22:05)
[2023-02-01] MEDS: SPIRONOLACTONE 25 MG TAB PO SCH (09:15)
[2023-02-01] MEDS: LEVOTHYROXINE SODIUM 50 MCG TAB PO SCH (09:15)
[2023-02-01] MEDS: ALLOPURINOL 100 MG TAB PO SCH ×2 (09:15→22:05)
[2023-02-01] MEDS: SOFOSBUVIR PO SCH (12:26)
[2023-02-01] MEDS: VELPATASVIR PO SCH (12:26)
[2023-02-01] MEDS: ONDANSETRON HCL 4 MG/2 ML VIAL IV PRN ×3 (12:56→22:05)
[2023-02-01] MEDS: MORPHINE SULFATE 4 MG/ML SYR/VIAL IV PRN ×2 (15:36→22:14)
[2023-02-01] MEDS: ATORVASTATIN 20 MG TAB PO SCH (22:05)
[2023-02-02 05:00] VITALS: BP 123/73; PULSE 60; RESP 18; TEMP 98.2; O2SAT 98
[2023-02-02] MEDS: SODIUM CHLOR 0.9% PF (SALINE LOCK) 10ML VIAL/SYR IV SCH ×3 (06:00→22:12)
[2023-02-02] MEDS: LEVOTHYROXINE SODIUM 50 MCG TAB PO SCH (06:46)
[2023-02-02] MEDS: FUROSEMIDE 40 MG/4 ML VIAL IV SCH ×2 (06:47→17:53)
[2023-02-02 09:00] VITALS: BP 147/70; PULSE 60; RESP 17; TEMP 98.1; O2SAT 98
[2023-02-02] MEDS: MORPHINE SULFATE 4 MG/ML SYR/VIAL IV PRN ×2 (09:34→21:11)
[2023-02-02] MEDS: SPIRONOLACTONE 25 MG TAB PO SCH (09:35)
[2023-02-02] MEDS: SOTALOL HCL 80 MG TAB PO SCH ×2 (09:35→22:00)
[2023-02-02] MEDS: FAMOTIDINE (10MG/ML) 2ML VL IV SCH ×2 (09:35→22:06)
[2023-02-02] MEDS: APIXABAN 2.5 MG TAB PO SCH ×2 (09:36→22:08)
[2023-02-02] MEDS: ALLOPURINOL 100 MG TAB PO SCH ×2 (09:36→22:07)
[2023-02-02] MEDS: POTASSIUM CHLORIDE 8 MEQ TAB PO SCH (09:36)
[2023-02-02] MEDS: levoFLOXacin 500 MG TAB PO SCH (09:36)
[2023-02-02] MEDS: METOPROLOL SUCCINATE XL 50 MG TAB PO SCH (09:37)
[2023-02-02] MEDS: MORPHINE SULF 15mg ER tab PO SCH ×2 (09:37→22:00)
[2023-02-02] MEDS: VELPATASVIR PO SCH (10:30)
[2023-02-02] MEDS: SOFOSBUVIR PO SCH (10:30)
[2023-02-02 12:32] VITALS: BP 135/87; PULSE 58; RESP 19; TEMP 98.3; O2SAT 98
[2023-02-02 14:31] LABS: Basophils # (auto) 0 10 ^3/uL (0-0.2); Basophils % (auto) 0.8 % (0.0-2.0); Eosinophils # (auto) 0 10 ^3/uL (0-0.8); Eosinophils % (auto) 0.6 % (0.0-7.0); Hematocrit 28.6 % (36.0-46.0); Hemoglobin 9.6 g/dL (12.2-16.2); Lymphocytes # (auto) 1.3 10 ^3/uL (0.4-5.4); Lymphocytes % (auto) 40.9 % (10.0-50.0); Mean Corpuscular Hemoglobin 31.1 pg (28.0-32.0); Mean Corpuscular Hgb Conc. 33.5 g/dL (32.0-36.0); Mean Corpuscular Volume 92.9 fL (80.0-100.0); Monocytes # (auto) 0.5 10 ^3/uL (0-1.3); Monocytes % (auto) 14.8 % (0.0-12.0); Neutrophils # (auto) 1.3 10 ^3/uL (1.6-8.6); Neutrophils % (auto) 42.9 % (37.0-80.0); Nucleated Red Blood Cells % 0.3 %; Red Blood Cells 3.08 10^6/uL (4.0-5.20); Red Cell Distribution Width 15.9 % (11.8-14.3); White Blood Cell 3.1 10^3/uL (4.4-10.8)
[2023-02-02 14:46] LABS: Alanine Aminotransferase 21 U/L (7-40); Albumin 2.8 g/dL (3.2-4.8); Alkaline Phosphatase 75 U/L (46-116); Anion Gap 3 (5-15); Aspartate Aminotransferase 37 U/L (13-40); BUN/Creatinine Ratio 7.1 (10.0-20.0); Bilirubin, Total 1.7 mg/dL (0.2-1.0); Blood Urea Nitrogen 7 mg/dL (9-23); Calcium 8.2 mg/dL (8.7-10.4); Carbon Dioxide 32 mmol/L (20-30); Chloride 103 mmol/L (98-107); Glucose 104 mg/dL (74-106); Potassium 3.1 mmol/L (3.5-5.1); Sodium 138 mmol/L (136-145); Total Protein 7.3 g/dL (5.7-8.2)
[2023-02-02 16:36] VITALS: BP 99/61; PULSE 84; RESP 16; TEMP 98.7; O2SAT 97
[2023-02-02 20:00] VITALS: PULSE 60; RESP 18
[2023-02-02] MEDS: ATORVASTATIN 20 MG TAB PO SCH (22:07)
[2023-02-03 05:00] VITALS: BP 111/59; PULSE 83; RESP 18; TEMP 98.4; O2SAT 96
[2023-02-03] MEDS: LEVOTHYROXINE SODIUM 50 MCG TAB PO SCH (05:46)
[2023-02-03] MEDS: FUROSEMIDE 40 MG/4 ML VIAL IV SCH (05:47)
[2023-02-03] MEDS: SODIUM CHLOR 0.9% PF (SALINE LOCK) 10ML VIAL/SYR IV SCH (05:55)
[2023-02-03 07:09] LABS: Alanine Aminotransferase 19 U/L (7-40); Alkaline Phosphatase 76 U/L (46-116); Anion Gap 5 (5-15); Aspartate Aminotransferase 35 U/L (13-40); BUN/Creatinine Ratio 5.8 (10.0-20.0); Blood Urea Nitrogen 6 mg/dL (9-23); Calcium 8.3 mg/dL (8.7-10.4); Carbon Dioxide 30 mmol/L (20-30); Chloride 102 mmol/L (98-107); Glucose 88 mg/dL (74-106); Potassium 3.1 mmol/L (3.5-5.1); Sodium 137 mmol/L (136-145)
[2023-02-03 07:10] LABS: Bilirubin, Total 1.9 mg/dL (0.2-1.0); Total Protein 7.7 g/dL (5.7-8.2)
[2023-02-03 07:42] LABS: Basophils # (auto) 0 10 ^3/uL (0-0.2); Basophils % (auto) 0.3 % (0.0-2.0); Eosinophils # (auto) 0 10 ^3/uL (0-0.8); Eosinophils % (auto) 0.3 % (0.0-7.0); Hematocrit 29.7 % (36.0-46.0); Hemoglobin 9.9 g/dL (12.2-16.2); Lymphocytes # (auto) 1.4 10 ^3/uL (0.4-5.4); Lymphocytes % (auto) 40.5 % (10.0-50.0); Mean Corpuscular Hgb Conc. 33.6 g/dL (32.0-36.0); Mean Corpuscular Volume 95.4 fL (80.0-100.0); Monocytes # (auto) 0.4 10 ^3/uL (0-1.3); Neutrophils # (auto) 1.6 10 ^3/uL (1.6-8.6); Neutrophils % (auto) 46.9 % (37.0-80.0); Nucleated Red Blood Cells % 0.4 %; Red Blood Cells 3.11 10^6/uL (4.0-5.20); Red Cell Distribution Width 15.7 % (11.8-14.3); White Blood Cell 3.5 10^3/uL (4.4-10.8)
[2023-02-03 08:00] VITALS: BP 107/64; PULSE 63; RESP 16; TEMP 98.2; O2SAT 98
[2023-02-03 09:00] VITALS: BP 98/53; PULSE 83; RESP 14; TEMP 98.3; O2SAT 98
[2023-02-03] MEDS: FAMOTIDINE (10MG/ML) 2ML VL IV SCH (09:10)
[2023-02-03] MEDS: APIXABAN 2.5 MG TAB PO SCH (09:10)
[2023-02-03] MEDS: POTASSIUM CHLORIDE 8 MEQ TAB PO SCH (09:10)
[2023-02-03] MEDS: SPIRONOLACTONE 25 MG TAB PO SCH (09:11)
[2023-02-03] MEDS: SOTALOL HCL 80 MG TAB PO SCH (09:11)
[2023-02-03] MEDS: levoFLOXacin 500 MG TAB PO SCH (09:11)
[2023-02-03] MEDS: SOFOSBUVIR PO SCH (09:12)
[2023-02-03] MEDS: ALLOPURINOL 100 MG TAB PO SCH (09:12)
[2023-02-03] MEDS: VELPATASVIR PO SCH (09:12)
[2023-02-03] MEDS: METOPROLOL SUCCINATE XL 50 MG TAB PO SCH (09:12)
[2023-02-03] MEDS: MORPHINE SULF 15mg ER tab PO SCH (09:13)
[2023-02-03] MEDS ORDERED: POTASSIUM CHL 20 Meq TABLET PO ONE (11:00)
[2023-02-03] MEDS: MORPHINE SULFATE 4 MG/ML SYR/VIAL IV PRN (11:32)
[2023-02-03 12:21] VITALS: BP 116/63
[2023-02-03 13:00] VITALS: BP 111/64; PULSE 62; RESP 14; TEMP 98.6; O2SAT 95
== END 2023-02-03 14:00 | disposition home or self-care (01) | DRG 532 ==
LOC: ER 18:39 → EDBD 18:39 → TELE 01-29 08:36 → TELE-WESTW 01-30 03:05
PROVIDERS: ADMIT Nurse Practitioner; ATTEND Nurse Practitioner
PROC: 05HC33Z Insertion of Infusion Device into Left Basilic Vein, Percutaneous Approach (ICD-10-PCS; principal; 2023-01-29)
PROC: B54NZZA Ultrasonography of Left Upper Extremity Veins, Guidance (ICD-10-PCS; 2023-01-29)
DX: N93.9 Abnormal uterine and vaginal bleeding, unspecified (principal); E43 Unspecified severe protein-calorie malnutrition; D69.6 Thrombocytopenia, unspecified; D63.8 Anemia in other chronic diseases classified elsewhere; F03.90 Unspecified dementia, unspecified severity, without behavioral disturbance, psychotic disturbance, mood disturbance, and anxiety; I50.9 Heart failure, unspecified; I11.0 Hypertensive heart disease with heart failure; K31.84 Gastroparesis; E11.43 Type 2 diabetes mellitus with diabetic autonomic (poly)neuropathy; E03.9 Hypothyroidism, unspecified; B19.20 Unspecified viral hepatitis C without hepatic coma; K74.60 Unspecified cirrhosis of liver; E78.5 Hyperlipidemia, unspecified; J44.9 Chronic obstructive pulmonary disease, unspecified; I48.0 Paroxysmal atrial fibrillation; M10.9 Gout, unspecified; G89.4 Chronic pain syndrome; E66.01 Morbid (severe) obesity due to excess calories; Z79.01 Long term (current) use of anticoagulants; Z79.899 Other long term (current) drug therapy; Z68.28 Body mass index [BMI] 28.0-28.9, adult; Z88.0 Allergy status to penicillin; Z88.5 Allergy status to narcotic agent; Z80.0 Family history of malignant neoplasm of digestive organs; Z82.3 Family history of stroke; Z82.49 Family history of ischemic heart disease and other diseases of the circulatory system; Z83.2 Family history of diseases of the blood and blood-forming organs and certain disorders involving the immune mechanism; Z83.3 Family history of diabetes mellitus; Z85.038 Personal history of other malignant neoplasm of large intestine; Z85.05 Personal history of malignant neoplasm of liver; Z85.6 Personal history of leukemia; Z86.73 Personal history of transient ischemic attack (TIA), and cerebral infarction without residual deficits; Z90.49 Acquired absence of other specified parts of digestive tract; Z90.710 Acquired absence of both cervix and uterus; Z91.199 Patient's noncompliance with other medical treatment and regimen due to unspecified reason; Z95.0 Presence of cardiac pacemaker
CPT/HCPCS: 36415; 71045; 74176; 74177; 76830; 76856; 80053; 80162; 81001; 82378; 83605; 83690; 83735; 83880; 84443; 84484; 85025; 85610; 86301; 86304; 87086; 93005; 93306; 93970; 96365; 96372; 96375; G0378; J2405; J3490

== ENCOUNTER 2023-09-03 10:47 | Emergency (ER) | payer MEDICARE, MEDICAID ==
[~2023-09-03] VITALS: Ht 177.8 cm; Wt 90.0 kg
[~2023-09-03 10:47] MED LIST changes: +ACET300T51 PO; -AMIO200T13 PO; -CARV12.544 PO; -CLIN300C70 PO; -DILT120T3 PO; -DOCU-209 PO; -DOCU-265; -DRON400T PO; +DULO1CAP6 PO; -IBUP1TAB5 PO; +MEDR2.5T5 PO; -METO-159 PO; +METO-289 PO; -OMEPRAZOLE DR 20 MG CAPSULE PO; -ONDA-188 PO; -PERCOT PO; -POTA8TAB38; +SOFO1TAB PO; +SOTA120T25 PO; -SOTA80TA; -TIZA-326 PO; +TIZA1TAB20 PO
[2023-09-03 11:01] VITALS: BP 118/74; PULSE 62; RESP 20; O2SAT 96
[2023-09-03 11:43] LABS: Basophils # (auto) 0 10 ^3/uL (0-0.2); Basophils % (auto) 0.8 % (0.0-2.0); Eosinophils # (auto) 0 10 ^3/uL (0-0.8); Eosinophils % (auto) 1.9 % (0.0-7.0); Hematocrit 33.1 % (36.0-46.0); Hemoglobin 10.6 g/dL (12.2-16.2); Lymphocytes # (auto) 0.9 10 ^3/uL (0.4-5.4); Lymphocytes % (auto) 43.8 % (10.0-50.0); Mean Corpuscular Hemoglobin 27.2 pg (28.0-32.0); Monocytes # (auto) 0.2 10 ^3/uL (0-1.3); Monocytes % (auto) 8.2 % (0.0-12.0); Neutrophils % (auto) 45.3 % (37.0-80.0); Red Blood Cells 3.89 10^6/uL (4.0-5.20); Red Cell Distribution Width 18.3 % (11.8-14.3); White Blood Cell 2.1 10^3/uL (4.4-10.8)
[2023-09-03 12:01] LABS: Alanine Aminotransferase 14 U/L (7-40); Albumin 4.2 g/dL (3.2-4.8); Alkaline Phosphatase 179 U/L (46-116); Anion Gap 4 (5-15); Aspartate Aminotransferase 24 U/L (13-40); Blood Urea Nitrogen 9 mg/dL (9-23); Calcium 9.8 mg/dL (8.7-10.4); Carbon Dioxide 24 mmol/L (20-30); Chloride 111 mmol/L (98-107); Glucose 85 mg/dL (74-106); INR 1.02 (0.9-1.15); Partial Thromboplastin Time 28.2 SEC (24.5-34.5); Prothrombin Time 10.7 sec (9.3-11.8); Sodium 139 mmol/L (136-145)
[2023-09-03 12:02] LABS: Bilirubin, Total 0.7 mg/dL (0.2-1.0); Total Protein 8.2 g/dL (5.7-8.2)
== END 2023-09-03 12:00 | disposition left against medical advice (07) ==
LOC: ER 10:47 → EDBD 10:47 → EDUNIT# 10:47 → ER 12:00
DX: R07.89 Other chest pain (principal); Z53.21 Procedure and treatment not carried out due to patient leaving prior to being seen by health care provider
CPT/HCPCS: 36415; 80053; 84484; 85025; 85610; 85730; 93005